=== PATIENT | female | born 1960 | race African-American/Black ===

== ENCOUNTER → 2017-11-27 | Outpatient (CLI) | payer BC | END | disposition home or self-care (01) | LOC: MRI 15:54 | DX: M47.892 Other spondylosis, cervical region (principal); M50.123 Cervical disc disorder at C6-C7 level with radiculopathy; M48.02 Spinal stenosis, cervical region; M25.78 Osteophyte, vertebrae | CPT/HCPCS: 72141 ==

== ENCOUNTER 2020-06-29 19:16 | Emergency (ER) | payer SELFPAY ==
[~2020-06-29] VITALS: Ht 165.1 cm; Wt 159.1 kg
[~2020-06-29 19:16] MED LIST: ASPI-482 PO; CANA300T PO; CYCL10TA2 PO; FURO40SO PO; HYDR-3164 PO; INSU100C SQ; INSU100I13 SQ; INSU100V8 SQ; LISI-334 PO; METF10007 PO; METO25TA4 PO; SIMV20TA18 PO; TERB250T84 PO
[2020-06-29] MEDS ORDERED: cloNIDine HCL 0.1 MG TABLET PO ONE (19:45)
[2020-06-29] MEDS ORDERED: HYDROcodone/APAP 5/325MG 1 TAB TABLET PO ONE (19:45)
--- NOTE | 2020-06-29 20:36 | RAD ---
Examination: Right Lower Extremity Venous Doppler Ultrasound History: Right lower extremity pain Comparison: None Procedure: Zapien scale, color flow 2D and spectal waveform analysis images are obtained with and witho ut compression in the area of the common femoral vein, superficial femoral vein - femoral vein juncti on, main femoral vein (superficial femoral vein) and popliteal vein. Veins of the proximal calf are a lso imaged. Findings: There is normal duplex flow, color flow and compressibility of all visualized vein segments. No evide nce of deep venous thrombus is present. Body habitus limits evaluation. Mild soft tissue edema right lower leg. Impression: No evidence of DVT right lower extremity venous system. Electronically signed by: Gustavo Palomo MD (06/29/2020 8:34 PM) [id number]
[2020-06-29] MEDS ORDERED: HYDR-3164 PO (20:48)
--- NOTE | 2020-06-29 20:48 | PHYS DOC ---
Past Medical History Past Medical History: Diabetes-Type II, High Cholesterol, Hypertension, P ancreatitis Additional Past Medical Histor: lymphedema Past Surgical History: Hysterectomy Additional Past Surgical Histo: thyroidectomy Smoking Status: Never Smoker Alcohol Use: Rarely Drug Use: None General Adult EDM: Chief Complaint: LOWER EXT PAIN HPI: HPI: Patient is a 59 year old female with a history of lymphedema to bilateral lower extremities, diabetes, hypertension, high cholesterol, who presents to the ED today complaining of moderate pain to the right foot that has been going on since this afternoon. Patient states she follows up with the lymphedema clinic. She was last seen on Sunday this week. Patient denies any injuries. Denies any thing specifically exacerbating or relieving her pain. She states she does not have anything for pain at home apart from [id number] medications. She states she did not want to come to the ED by EMS felt she need to be evaluated because she was home by herself. Review of Systems: Review of Systems: Constitutional: Denies fever or chills. [] Eyes: Denies change in visual acuity. [] HENT: Denies nasal congestion or sore throat. [] Respiratory: Denies cough or shortness of breath. [] Cardiovascular: Denies chest pain or edema. [] GI: Denies abdominal pain, nausea, vomiting, bloody stools or diarrhea. [] : Denies dysuria. [] Musculoskeletal: Reports right foot pain, reports chronic lymphedema Integument: Denies rash. [] Neurologic: Denies headache, focal weakness or sensory changes. [] Psychiatric: Denies depression or anxiety. [] Heart Score: Risk Factors: Risk Factors: DM, Current or recent (<one month) smoker, HTN, HLP, family history of CAD, obesity. Risk Scores: Score 0 - 3: 2.5% MACE over next 6 weeks - Discharge Home Score 4 - 6: 20.3% MACE over next 6 weeks - Admit for Clinical Observation Score 7 - 10: 72.7% MACE over next 6 weeks - Early Invasive Strategies Current Medications: Current Medications Medications (Trade) Dose Ordered Sig/Jaquan Start Time Stop Time Status Last Admin Dose Admin Acetaminophen/ Hydrocodone Bitart (Lortab 5/325) 2 tab 1X ONCE 06/29/20 19:45 06/29/20 19:46 DC 06/29/20 19:47 2 TAB Clonidine HCl (Catapres) 0.3 mg 1X ONCE 06/29/20 19:45 06/29/20 19:46 DC 06/29/20 19:46 0.3 MG Allergies: Allergies: Allergies Coded Allergies Type Severity Reaction Last Updated Verified Penicillins Allergy Intermediate 06/29/20 Yes Physical Exam: PE: Constitutional: Well developed, well nourished, no acute distress, non-toxic appearance. [] HENT: Normocephalic, atraumatic, bilateral external ears normal, oropharynx moist, no oral exudates, nose normal. [] Eyes: PERRLA, EOMI, conjunctiva normal, no discharge. [] Neck: Normal range of motion, no tenderness, supple, no stridor. [] Cardiovascular:Heart rate regular rhythm, no murmur [] Lungs & Thorax: Bilateral breath sounds clear to auscultation [] Abdomen: Bowel sounds normal, soft, no tenderness, no masses, no pulsatile masses. [] Skin: Warm, dry, no erythema, no rash. [] Back: No tenderness, no CVA tenderness. [] Extremities: No tenderness, no cyanosis, no clubbing, ROM intact, bilateral lower extremities with swelling consistent of lymphedema and lymphedema dressing. Negative Homans' sign bilaterally. +1 bilateral pedal pulses Neurologic: Alert and oriented X 3, normal motor function, normal sensory function, no focal deficits noted. [] Psychologic: Affect normal, judgement normal, mood normal. [] Current Patient Data: Vital Signs: Vital Signs Date Time Temp Pulse Resp B/P (MAP) Pulse Ox O2 Delivery O2 Flow Rate FiO2 06/29/20 19:47 20 92 06/29/20 19:46 63 194/91 06/29/20 19:25 98.4 Room Air 98.4 EKG: EKG: [] Radiology/Procedures: Radiology/Procedures: []PROCEDURE: VENOUS LOWER EXTREMITY RIGHT Examination: Right Lower Extremity Venous Doppler Ultrasound History: Right lower extremity pain Comparison: None Procedure: Zapien scale, color flow 2D and spectal waveform analysis images are obtained with and without compression in the area of the common femoral vein, superficial femoral vein - femoral vein junction, main femoral vein (superficial femoral vein) and popliteal vein. Veins of the proximal calf are also imaged. Findings: There is normal duplex flow, color flow and compressibility of all visualized vein segments. No evidence of deep venous thrombus is present. Body habitus limits evaluation. Mild soft tissue edema right lower leg. Impression: No evidence of DVT right lower extremity venous system. Electronically signed by: Gustavo Milan MD (06/29/2020 8:34 PM) [id number] DICTATED and SIGNED BY: GUSTAVO MILAN MD DATE: 06/29/207060FPD1 0 Course & Med Decision Making: Course & Med Decision Making Pertinent Labs and Imaging studies reviewed. (See chart for details) This is a 59-year-old female patient with history of lymphedema presenting to the ED today complaining of right foot pain. She follows up with the lymphedema clinic. Venous Doppler of the right lower extremity is negative. She has hi story of hypertension, blood pressure was running at 243/116 with a heart rate of 66 on arrival to the ED. No chest pain or shortness of breath. Patient was given clonidine and hydrocodone for her pain. Blood pressure is coming down, currently 194/91 with a heart rate of 63. Takes metoprolol at home her next dose is due tomorrow morning. Venous Doppler of the right lower extremity is negative. Patient was rewrapped. Discharge back to home. Follow-up with her PCP as well as lymphedema clinic. Quentin Disclaimer: Quentin Disclaimer: This electronic medical record was generated, in whole or in part, using a voice recognition dictation system. Departure Departure Impression: Primary Impression: Right foot pain Additional Impressions: Lymphedema of both lower extremities Accelerated hypertension Disposition: 01 DC HOME SELF CARE/HOMELESS Condition: STABLE Referrals: UNKNOWN PCP NAME (PCP) Patient Instructions: Hypertension, Lymphedema, Musculoskeletal Pain Additional Instructions: You were evaluated in the emergency room for right foot pain. Your right lower extremity ultrasound is negative for blood clots. Take the prescribed pain medicine as needed for pain. Ensure you are taking your blood pressure medicine and diabetes medicines. Take the pain medicine as needed follow-up with the lymphedema clinic and primary care doctor next week Scripts Hydrocodone/Apap 5-325 (NORCO 5-325 TABLET) 1 Each Tablet 1 TAB PO Q6HRS, #12 TAB Prov: RAFIA FAN APRN 06/29/20 RAFIA FAN APRN Jun 29, 2020 20:48
[2020-06-29 22:10] VITALS: BP 177/77
== END 2020-06-29 22:30 | disposition home or self-care (01) ==
LOC: ER 19:16
DX: M79.671 Pain in right foot (principal); I89.0 Lymphedema, not elsewhere classified; I10 Essential (primary) hypertension; E11.9 Type 2 diabetes mellitus without complications; E78.00 Pure hypercholesterolemia, unspecified; Z90.710 Acquired absence of both cervix and uterus; Z88.0 Allergy status to penicillin
CPT/HCPCS: 93971; 99284

== ENCOUNTER → 2020-10-20 | Outpatient (CLI) | payer OTHER ==
[~2020-10-20] MED LIST changes: +BARIUM SULFATE 340 GM SUSPENSION. PO ONE; +BARIUM SULFATE 60% 355 ML SUSP PO ONE; +CONTRAST GIVEN. MC PRN; +IOHEXOL 300 MG/ML 100ML VIAL. IV ONE; -LISI-334 PO; +LISI20TA18 PO; +SIMETHICONE/SOD BICARB/CITRIC ACID PACKET. PO ONE
--- NOTE | 2020-10-20 09:45 | RAD ---
EXAM: Abdomen CT with and without intravenous contrast. HISTORY: Pancreatic lesion. TECHNIQUE: Computed tomographic images of the abdomen were obtained prior to and following the admini stration of intravenous contrast. Multiplanar reformatting was performed. *One or more of the following individualized dose reduction techniques were utilized for this examina tion: 1. Automated exposure control. 2. Adjustment of the mA and/or kV according to patient size. 3. Use of iterative reconstruction technique. COMPARISON: 11/19/2015. FINDINGS: Evaluation of the lower thorax demonstrates no infiltrate or pleural effusion. There is mil d cardiomegaly. There is mild hepatomegaly and hepatic steatosis. No focal hepatic lesion is seen. Th e gallbladder, spleen, stomach and adrenal glands are unremarkable. There is a lobulated hypodense lesion within the proximal body of the pancreas measuring approximatel y 2.8 cm in maximum dimension and containing a few calcifications. No pancreatic ductal dilatation is seen. There are few prominent periportal lymph nodes which are nonspecific and not pathologically en larged. The kidneys are unremarkable. No abnormally thickened or dilated loop of bowel is seen. There are deg enerative changes involving the spine. There is no suspicious osseous lesion. IMPRESSION: 1. 2.8 cm lobulated hypodense lesion within the proximal pancreatic body with associated calcificatio ns. The imaging appearance favors a cystic neoplasm rather than pseudocyst. MRCP with and without con trast can better assess this lesion. This is increased in size compared to a study performed 6, allowing for differences in imaging technique. 2. Hepatomegaly and hepatic steatosis. Electronically signed by: Kim Bone MD (10/20/2020 9:42 AM) [id number]
--- NOTE | 2020-10-20 09:58 | RAD ---
EXAM: Barium esophagram. HISTORY: Dysphagia. Regurgitation of solid and liquids. TECHNIQUE: Fluoroscopic imaging was performed in multiple positions and obliquities during the oral a dministration of barium contrast. A solid barium tablet was also administered. A total of 28 fluorosc opic images were obtained for total fluoroscopy time of 0.9 minutes. COMPARISON: CT obtained on the same date. FINDINGS: A fluoroscopic talent acquisition director image of the thorax demonstrates diffuse increased interstitial opacit y likely due to atelectasis. There is a prominent cardiac silhouette. There is no pleural effusion or pneumothorax. There is cervical spinal fusion instrumentation. The images obtained during the oral a dministration of thin barium contrast demonstrate a patulous esophagus without evidence of a focal mu cosal lesion. There are minimal esophageal tertiary contractions. No spasm is seen. There is delayed transit of a solid barium tablet beyond the gastroesophageal junction. However, the gastroesophageal junction throughout the exam. The stomach demonstrates a normal configuration and mucosal pattern. Th ere is normal emptying of contrast into the small bowel. No hiatal hernia is seen. There is reflux of contrast into the proximal esophagus with recumbent positioning. IMPRESSION: 1. Patulous esophagus and gastroesophageal reflux to the proximal esophagus with recumbent positionin g. No esophageal mucosal lesion is seen. 2. Minimal esophageal tertiary contractions. 3. Delayed transit of a solid barium tablet beyond the gastroesophageal junction. The possibility of a component of stenosis is not excluded. No hernia is seen. Electronically signed by: Kim Bone MD (10/20/2020 9:56 AM) [id number]
== END ==
LOC: CT 09:51
PROVIDERS: ATTEND Family Medicine
DX: K86.9 Disease of pancreas, unspecified (principal)
CPT/HCPCS: 74170; 74220; Q9967

== ENCOUNTER 2021-01-11 19:48 | Emergency (ER) | payer MEDICAID, OTHER ==
[~2021-01-11] VITALS: Ht 165.1 cm; Wt 154.5 kg
[~2021-01-11 19:48] MED LIST changes: -BARIUM SULFATE 340 GM SUSPENSION. PO ONE; -BARIUM SULFATE 60% 355 ML SUSP PO ONE; -CONTRAST GIVEN. MC PRN; -IOHEXOL 300 MG/ML 100ML VIAL. IV ONE; -SIMETHICONE/SOD BICARB/CITRIC ACID PACKET. PO ONE
--- NOTE | 2021-01-11 20:16 | PHYS DOC ---
Past Medical History Past Medical History: Diabetes-Type II, High Cholesterol, Hypertension, P ancreatitis Additional Past Medical Histor: lymphedema Past Surgical History: Hysterectomy Additional Past Surgical Histo: thyroidectomy Smoking Status: Never Smoker Alcohol Use: Rarely Drug Use: None General Adult EDM: Chief Complaint: MULTIPLE COMPLAINTS HPI: HPI: Patient is a 60 year old female past medical history of lymphedema, diabetes, asthma, hypertension presents with a chief complaint of chest pain and shortness of breath. Patient states she has had shortness of breath for 2 weeks progressively becoming worse. Patient states she has has a chronic cough but has been coughing more than normal. She endorses increasing shortness of breath with exertion. Patient has chronic bilateral lower extremity swelling due to lymphedema but states her legs are more swollen than normal. Patient also co mplains of bilateral hand swelling. Patient also complains of chest pain. Chest pain is located substernal and it does not radiate. Patient states chest pain started 3 days ago. Usually pain comes and goes but since yesterday patient pain has been become more frequent and intense. Patient denies any associated nausea vomiting or diaphoresis. Review of Systems: Review of Systems: Constitutional: Denies fever or chills. [] Eyes: Denies change in visual acuity. [] HENT: Denies nasal congestion or sore throat. [] Respiratory: Denies cough or shortness of breath. [] Cardiovascular: Denies chest pain or edema. [] GI: Denies abdominal pain, nausea, vomiting, bloody stools or diarrhea. [] : Denies dysuria. [] Musculoskeletal: Denies back pain or joint pain. [] Integument: Denies rash. [] Neurologic: Denies headache, focal weakness or sensory changes. [] Endocrine: Denies polyuria or polydipsia. [] Lymphatic: Denies swollen glands. [] Psychiatric: Denies depression or anxiety. [] Heart Score: C/O Chest Pain: Yes HEART Score for Chest Pain: HEART Score for Chest Pain Response (Comments) Value History Slighlty/Non-Suspicious 0 ECG Nonspecific Repolarizatio 1 Age >45 - < 65 1 Risk Factors >3 Risk Factors or Hx CAD 2 Total 4 Risk Factors: Risk Factors: DM, Current or recent (<one month) smoker, HTN, HLP, family history of CAD, obesity. Risk Scores: Score 0 - 3: 2.5% MACE over next 6 weeks - Discharge Home Score 4 - 6: 20.3% MACE over next 6 weeks - Admit for Clinical Observation Score 7 - 10: 72.7% MACE over next 6 weeks - Early Invasive Strategies Allergies: Allergies: Allergies Coded Allergies Type Severity Reaction Last Updated Verified Penicillins Allergy Intermediate 06/29/20 Yes Physical Exam: PE: Constitutional: Well developed, well nourished, no acute distress, non-toxic appearance. [] HENT: Normocephalic, atraumatic, bilateral external ears normal, oropharynx moist, no oral exudates, nose normal. [] Eyes: PERRLA, EOMI, conjunctiva normal, no discharge. [] Neck: Normal range of motion, no tenderness, supple, no stridor. [] Cardiovascular:Heart rate regular rhythm, no murmur [] Lungs & Thorax: Bilateral breath sounds clear to auscultation [] Abdomen: Bowel sounds normal, soft, no tenderness, no masses, no pulsatile masses. [] Skin: Warm, dry, no erythema, no rash. [] Back: No tenderness, no CVA tenderness. [] Extremities: No tenderness, no cyanosis, no clubbing, ROM intact, no edema. [] Neurologic: Alert and oriented X 3, normal motor function, normal sensory function, no focal deficits noted. [] Psychologic: Affect normal, judgement normal, mood normal. [] EKG: EKG: [] Performed at 1958 Rate [address] elevation No ST depression No acute [place] Radiology/Procedures: Radiology/Procedures: [] Impression: EXAMINATION: Chest radiograph. VIEWS: Single view COMPARISON: None INDICATION:60 years, Female, chest pain and shortness of breath. FINDINGS: Normal cardiomediastinal silhouette. No focal consolidation. No pleural effusion or pneumothorax. No acute osseous process. IMPRESSION: No acute cardiopulmonary process. Course & Med Decision Making: Course & Med Decision Making Pertinent Labs and Imaging studies reviewed. (See chart for details) [] Patient was evaluated for chief complaint. Work-up consisted of laboratory analysis radiologic imaging and EKG. Results reviewed and discussed with patient. Patient noted to have elevated BNP. Chest x-ray no focal infiltrates or abnormalities. EKG within normal limits troponin not elevated. Will be discharged home on Lasix. Patient to follow-up with her primary care physician. Quentin Disclaimer: Quentin Disclaimer: This electronic medical record was generated, in whole or in part, using a voice recognition dictation system. Departure Departure Impression: Primary Impression: Lymphedema of both lower extremities Additional Impressions: Dyspnea Chest pain Disposition: HOME / SELF CARE / HOMELESS Condition: STABLE Referrals: UNKNOWN PCP NAME (PCP) Patient Instructions: Chest Pain (Nonspecific), Edema, Shortness of Breath Scripts Furosemide (LASIX) 40 Mg Tablet 1 TAB PO DAILY for 30 Days, #20 TAB 0 Refills Prov: TEJ PINO DO 01/11/21 TEJ PINO DO Jan 11, 2021 20:16
[2021-01-11 20:59] LABS: BASO # 0.1 x10^3/uL (0.0-0.2); BASO % 1 % (0-3); EOS # 0.3 x10^3/uL (0.0-0.7); EOS % 2 % (0-3); HEMATOCRIT 41.8 % (36.0-47.0); HEMOGLOBIN 13.3 g/dL (12.0-15.5); LYMPH # 2.4 x10^3/uL (1.0-4.8); LYMPH % 21 % (24-48); MEAN CORPUSCULAR HEMOGLOBIN 25 pg (25-35); MEAN CORPUSCULAR HGB CONC 32 g/dL (31-37); MEAN CORPUSCULAR VOLUME 80 fL (79-100); MONO # 0.8 x10^3/uL (0.0-1.1); MONO % 8 % (0-9); NEUT # 7.7 x10^3/uL (1.8-7.7); NEUT % 68 % (31-73); PLATELET COUNT 259 x10^3/uL (140-400); RED BLOOD COUNT 5.22 x10^6/uL (3.50-5.40); RED CELL DISTRIBUTION WIDTH 16.4 % (11.5-14.5); WHITE BLOOD COUNT 11.3 x10^3/uL (4.0-11.0)
--- NOTE | 2021-01-11 21:00 | RAD ---
EXAMINATION: Chest radiograph. VIEWS: Single view COMPARISON: None INDICATION:60 years, Female, chest pain and shortness of breath. FINDINGS: Normal cardiomediastinal silhouette. No focal consolidation. No pleural effusion or pneumothorax. No acute osseous process. IMPRESSION: No acute cardiopulmonary process. Electronically signed by: Lele Moore MD (01/11/2021 8:57 PM) [facility]
[2021-01-11 21:10] LABS: CALCIUM 9.4 mg/dL (8.5-10.1); GFR 68.7; POTASSIUM 4.2 mmol/L (3.5-5.1)
[2021-01-11 21:15] LABS: ALBUMIN 2.9 g/dL (3.4-5.0); ALBUMIN/GLOBULIN RATIO 0.7 (1.0-1.7); TOTAL BILIRUBIN 0.2 mg/dL (0.2-1.0); TOTAL PROTEIN 7.2 g/dL (6.4-8.2)
[2021-01-11] MEDS ORDERED: FURO-68 PO (22:24)
[2021-01-11 23:02] VITALS: BP 195/86
--- NOTE | 2021-01-12 06:10 | EKG ---
[facility] [address] [place] [address] Test Date: 2021-01-11 Test Time: 19:59:13 Pat Name: QIANA SEXTON Department: Room: Gender: F Interior Design Principal: : 1960 Requested By: TEJ PINO Order Number: [id number] Reading MD: Measurements Intervals [place] Rate: 89 P: 11 [place]: 156 QRS: 231 QRSD: 94 T: 16 QT: 360 QTc: 439 Interpretive Statements SINUS RHYTHM ABNORMAL RIGHT SUPERIOR AXIS DEVIATION R-S TRANSITION ZONE IN V LEADS DISPLACED TO THE LEFT CONSIDER RIGHT VENTRICULAR HYPERTROPHY QRS(T) CONTOUR ABNORMALITY CONSIDER INFERIOR INFARCT ABNORMAL ECG RI6.02 No previous ECG available for comparison
== END 2021-01-11 23:15 | disposition home or self-care (01) ==
LOC: ER 19:48
DX: R07.89 Other chest pain (principal); R06.02 Shortness of breath; I89.0 Lymphedema, not elsewhere classified; E11.9 Type 2 diabetes mellitus without complications; E78.00 Pure hypercholesterolemia, unspecified; I10 Essential (primary) hypertension; Z88.0 Allergy status to penicillin
CPT/HCPCS: 36415; 71045; 80053; 83880; 84484; 85025; 93005; 99285-25